=== PATIENT | female | born 1955 | race Caucasian/White ===

== ENCOUNTER 2017-02-28 08:31 | Day surgery (SDC) | payer BC ==
[~2017-02-28 08:31] MED LIST: Lactated Ringers 1,000 ML IV SCH; Lidocaine 1% 6 ML ONE; Lidocaine 1%/Sod Bicarbonate in NS 8.4% 1 ML Syringe IV PRN; Midazolam 1 MG/ML 2 ML SDV ONE; Propofol 200 MG/20 ML SDV ONE; Sodium Chloride 0.9% 10 ML Syringe FLUSH PRN; fentaNYL 100 MCG/2 ML SDV ONE
--- NOTE | 2017-02-28 08:56 | PCM.PREANE ---
Preanesthetic Assessment - Anesthesia/Transfusion/Family Hx Anesthesia History: Prior Anesthesia Without Reaction Family History of Anesthesia Reaction: No Transfusion History: No Prior Transfusion(s) - Review of Systems General: No Symptoms Pulmonary: No Symptoms Cardiovascular: No Symptoms Gastrointestinal: No symptoms, Abdominal pain (lately also anxiety) Neurological: No Symptoms Other: Reports: Easy Bruising, Thyroid Problems (half a thyroid), Neck Pain ( bulging disc), Depression, Anxiety - Physical Assessment NPO Status Date: 02/27/17 NPO Status Time: 23:00 Pulse: 96 O2 Sat by Pulse Oximetry: 98 Respiratory Rate: 16 Blood Pressure: 110/81 Temperature: 97.5 F Height: 5 ft 4 in Weight: 70.307 kg ASA Class: 2 Mental Status: Alert & Oriented x3 Airway Class: Mallampati = 1 Dentition: Reports: Normal Dentition, Broken Tooth/Teeth, Missing Tooth/Teeth Thyro-Mental Finger Breadths: 3 Mouth Opening Finger Breadths: 3 ROM/Head Extension: Full Lungs: Clear to auscultation, Normal respiratory effort Cardiovascular: Regular Rhythm - Allergies Allergies/Adverse Reactions: Allergies Allergy/AdvReac Type Severity Reaction Status Date / Time No Known Allergies Allergy Verified 02/27/17 16:19 - Blood Blood Available: No - Acknowledgements Anesthesia Type Planned: MAC Pt an Appropriate Candidate for the Planned Anesthesia: Yes Alternatives and Risks of Anesthesia Discussed w Pt/Guardian: Yes Pt/Guardian Understands and Agrees with Anesthesia Plan: Yes PreAnesthesia Questionnaire HEENT History: Reports: Allergic Rhinitis, Impaired Vision Cardiovascular History: Reports: Heart Murmur, Hypertension Respiratory History: Reports: SOB Gastrointestinal History: Reports: Chronic Constipation, Colon Polyp Genitourinary History: Reports: None 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 Musculoskeletal History: Reports: Other (See Below) Other Musculoskeletal History: chronic neck pain Neurological History: Reports: Other (See Below) (occasional headache) Psychiatric History: Reports: Anxiety, Depression Other Psychiatric History: alcohol use Endocrine/Metabolic History: Reports: Hypothyroidism Hematologic History: Reports: Other (See Below) Other Hematologic History: hyponatremia Oncologic (Cancer) History: Reports: None Dermatologic History: Reports: None - Past Surgical History Head Surgeries/Procedures: Reports: None HEENT Surgical History: Reports: Oral Surgery GI Surgical History: Reports: Colonoscopy Endocrine Surgical History: Reports: Thyroidectomy - SUBSTANCE USE Smoking Status *Q: Current Every Day Smoker Tobacco Use Within Last Twelve Months: Cigarettes Second Hand Smoke Exposure: Yes Days Per Week of Alcohol Use: 5 (usually whiskey) Number of Drinks Per Day: 4 Total Drinks Per Week: 20 Recreational Drug Use History: No - HOME MEDS Home Medications: Home Meds Cyclobenzaprine HCl [Cyclobenzaprine HCl] 10 mg PO BID PRN 02/27/17 [History] Gabapentin [Gabapentin] 300 mg PO BEDTIME 02/27/17 [History] Levothyroxine Sodium [Levothyroxine Sodium] 100 mcg PO DAILY 02/27/17 [History] Loratadine [Claritin] 10 mg PO DAILY 02/27/17 [History] Losartan [Cozaar] 100 mg PO DAILY 02/27/17 [History] Sertraline HCl [Sertraline HCl] 50 mg PO DAILY 02/27/17 [History] buPROPion HCl [Bupropion Xl] 150 mg PO DAILY 02/27/17 [History] - CURRENT (IN HOUSE) MEDS Current Meds: Current Medications Lactated Ringer's (Ringers, Lactated) 1,000 mls @ 125 mls/hr IV ASDIRECTED REBECCA Stop: 02/28/17 23:00 Lidocaine/Sodium Bicarbonate (Buffered Lidocaine 1% In Ns 8.4%) 0.25 ml IV ONETIME PRN PRN Reason: Prior to IV Start Stop: 02/28/17 18:00 Sodium Chloride (Saline Flush) 10 ml FLUSH ASDIRECTED PRN PRN Reason: Keep Vein Open Stop: 02/28/17 18:00 Discontinued Medications Fentanyl (Sublimaze) Confirm Administered Dose 100 mcg .ROUTE .STK-MED ONE Stop: 02/28/17 07:38 Lidocaine HCl (Xylocaine-Mpf 1%) Confirm Administered Dose 6 mls @ as directed .ROUTE .STK-MED ONE Stop: 02/28/17 07:37 Midazolam HCl (Versed 1 Mg/Ml) Confirm Administered Dose 2 mg .ROUTE .STK-MED ONE Stop: 02/28/17 07:38 Propofol (Diprivan 20 Ml) Confirm Administered Dose 200 mg .ROUTE .STK-MED ONE Stop: 02/28/17 07:37
[2017-02-28] MEDS ORDERED: Propofol 200 MG/20 ML SDV ONE ×2 (10:15→10:36)
[2017-02-28] MEDS ORDERED: Lactated Ringers 1,000 ML ONE (10:16)
--- NOTE | 2017-02-28 10:56 | PCM48HPAN ---
Post Anesthesia Note - EVALUATION WITHIN 48HRS OF ANESTHETIC Vital Signs in Normal Range: Yes Patient Participated in Evaluation: Yes Respiratory Function Stable: Yes Airway Patent: Yes Cardiovascular Function Stable: Yes Hydration Status Stable: Yes Pain Control Satisfactory: Yes Nausea and Vomiting Control Satisfactory: Yes Mental Status Recovered: Yes
[2017-02-28 10:58] VITALS: BP 162/88
--- NOTE | 2017-02-28 10:59 | PCM.OPNOTE ---
- General Post-Op/Procedure Note Date of Surgery/Procedure: 02/28/17 Operative Procedure(s): Colonoscopy with biopsies of the appendiceal orifice, and two random rectal biopsies, along with a sigmoid polypectomy, and fulguration of 13 diminutive sigmoid, and rectal polyps. Findings: 1. internal hemorrhoids 2. multiple diminutive all < 5 mm sigmoid and rectal polyps 3. protuberant and prolapsed appendiceal mucosa Pre Op Diagnosis: Change in bowel habit Post-Op Diagnosis: 1. internal hemorrhoids. 2. multiple sigmoid and rectal polyps Anesthesia Technique: MAC, Moderate sedation Primary Surgeon: Manan iWlkins Pathology: Biopsy of the appendiceal orifice, and biopsy of the rectum, along with sigmoid , polypectomy EBL in mLs: 0 Complications: None Condition: Good Free Text/Narrative:: After adequate IV sedation and analgesia was obtained the patient was placed on her left side. Perianal inspection was unremarkable. She did have some hyperpigmentation. A lubricated colonoscope was inserted into the rectum and advanced with some difficulty because the colon was capacious to the cecum with abdominal pressure. The appendix orifice was protuberant with slightly prolapsed mucosa, which I biopsied x2 with cold forceps for histopathologic evaluation. The cecum, and right colon were unremarkable with no mass lesions or inflammatory changes seen. Likewise the transverse colon and descending colons were endoscopically normal. Within the distal sigmoid and rectum there were 14 diminutive polyps, all grossly hyperplastic. The largest which was 6 mm in diameter I biopsied and the other 13 sigmoid and proximal rectal polyps were fulgurated. In the retroflexed view I could see internal hemorrhoids, which were uncomplicated. Air was removed, as I finished the procedure. Food Operations Manager photographs were taken for the patient and for the record. Given the number of polyps she should have a followup colonoscopy in one year.
== END 2017-02-28 11:42 | disposition home or self-care (01) ==
LOC: JD.SDS 08:31
PROVIDERS: ATTEND Surgery
PROC: 0D5N8ZZ Destruction of Sigmoid Colon, Via Natural or Artificial Opening Endoscopic (ICD-10-PCS; principal; 2017-02-28)
DX: K63.5 Polyp of colon (principal); K64.8 Other hemorrhoids; K62.1 Rectal polyp
CPT/HCPCS: 45380; 45388; 88305; J2250; J3010; J7120; J2704

== ENCOUNTER 2020-05-13 15:56 | Emergency (ER) | payer BC, OTHER ==
[2020-05-13] MEDS ORDERED: Ondansetron 4 MG/2 ML SDV IVPUSH ONE (17:27)
[2020-05-13] MEDS ORDERED: Alum Hydrox/Mag Hydrox/Simeth 30 ML, Lidocaine 2% 15 ML PO ONE ×2 (17:28)
[2020-05-13] MEDS ORDERED: Sodium Chloride 0.9% 10 ML Syringe FLUSH PRN ×2 (17:29→17:48)
[2020-05-13] MEDS ORDERED: Sodium Chloride 0.9% 1,000 ML IV SCH (17:30)
[2020-05-13] MEDS ORDERED: Iopamidol 612 MG/ML 100 ML Bottle IVPUSH ONE (17:48)
[2020-05-13] MEDS ORDERED: Diatrizoate Meglumine/Diatrizoate Sodium 37% 120 ML Bottle PO ONE (17:48)
--- NOTE | 2020-05-13 17:48 | EDM.PDOC ---
ED HPI GENERAL MEDICAL PROBLEM - General Chief Complaint: Abdominal Pain Stated Complaint: WEAK/ABDOMINAL PAIN/SWEATS Time Seen by Provider: 05/13/20 16:52 Source of Information: Reports: Patient, RN Notes Reviewed History Limitations: Reports: No Limitations - History of Present Illness INITIAL COMMENTS - FREE TEXT/NARRATIVE: Patient is a 65 year old female who presents to the ED for her abdomen pain. The patient notes a positive history for Lung Cancer with masses on her colon that need to be removed. The patient states that three days ago, she developed lower abdominal pains that were sharp in nature, but she states that they have now moved to her epigastric region. She notes some mild heartburn and burping with this. She states that movement does seem to make the cramping worse. Patient notes that some muscle weakness in her arms and legs to follow after the abdominal pain starts. She also appreciates shortness of breath with even some of the slightest movement. The patient states that she just feels terrible. She thought that she felt a little bit constipated the other day, so she did have her daughter bring out some laxatives, she states that it took 12 hours for these laxatives to work. She states that her bowel movement was normal for her last yesterday. Patient notes that she is only had contact with her family members, and they have not been symptomatic for COVID-19. She states that her youngest daughter and have also been tested for COVID-19 and they have been negative. But she does note that they have been out in the community. She denies any fever or chills, cough that is not a smoker's cough. She did wake up this morning at around 2 AM, and had an episode of vomiting, and states she is only gotten about 2 hours of sleep due to the pain. She is complaining of some mild heartburn with belching. She states all she had to eat for yesterday was half of a roast beef sandwich from [email or web address]. Other than her lung cancer, patient has had a half of her thyroid taking out. She did get chemo for her lung cancer, and states that she did complete her treatment for this. Patient notes that she is slated for removal of the masses in her colon, in May. Middle Epigastric Pain Score (Numeric/FACES): 2 - Related Data Allergies Allergy/AdvReac Type Severity Reaction Status Date / Time adhesive Allergy Rash Verified 05/13/20 20:20 avocado Allergy Rash Verified 05/13/20 20:20 Home Meds: Home Meds Cyclobenzaprine HCl 10 mg PO DAILY PRN 02/27/17 [History] Gabapentin 300 mg PO BEDTIME 02/27/17 [History] Levothyroxine Sodium 100 mcg PO DAILY 02/27/17 [History] Loratadine [Claritin] 10 mg PO DAILY 02/27/17 [History] Losartan [Cozaar] 50 mg PO DAILY 02/27/17 [History] buPROPion HCl [Bupropion Xl] 300 mg PO DAILY 02/27/17 [History] Albuterol [Ventolin HFA] 2 inh PO QID PRN 05/13/20 [History] Furosemide 20 mg PO DAILY 05/13/20 [History] Tiotropium Corral [Spiriva Respimat] 2 inh PO DAILY 05/13/20 [History] Past Medical History HEENT History: Reports: Allergic Rhinitis, Impaired Vision Cardiovascular History: Reports: Heart Murmur, Hypertension Respiratory History: Reports: SOB Gastrointestinal History: Reports: Chronic Constipation, Colon Polyp Musculoskeletal History: Reports: Other (See Below) Other Musculoskeletal History: chronic neck pain Neurological History: Reports: Other (See Below) (occasional headache) Psychiatric History: Reports: Anxiety, Depression Other Psychiatric History: alcohol use Endocrine/Metabolic History: Reports: Hypothyroidism Hematologic History: Reports: Other (See Below) Other Hematologic History: hyponatremia Oncologic (Cancer) History: Reports: Lung (with Chemo in 2017, also notes masses in her colon to be removed May 2020) - Past Surgical History HEENT Surgical History: Reports: Oral Surgery GI Surgical History: Reports: Colonoscopy Endocrine Surgical History: Reports: Thyroidectomy Social & Family History - Tobacco Use Smoking Status *Q: Current Every Day Smoker Tobacco Use Within Last Twelve Months: Cigarettes ED ROS GENERAL - Review of Systems Review Of Systems: Comprehensive ROS is negative, except as noted in HPI. ED EXAM, GI/ABD - Physical Exam Exam: See Below Exam Limited By: No Limitations General Appearance: Alert, WD/WN, No Apparent Distress Eyes: Bilateral: Normal Appearance Throat/Mouth: Normal Inspection, Normal Lips, Normal Teeth, Normal Gums, Normal Oropharynx, Normal Voice, No Airway Compromise Head: Atraumatic, Normocephalic Neck: Normal Inspection Respiratory/Chest: No Respiratory Distress, Lungs Clear, Normal Breath Sounds, No Accessory Muscle Use, Chest Non-Tender Cardiovascular: Normal Peripheral Pulses, Regular Rate, Rhythm, No Murmur GI/Abdominal Exam: Normal Bowel Sounds, Soft, No Distention, No Mass, Tender (generalized, but more exquisitely tender over epigastrium) Extremities: Normal Inspection, Normal Capillary Refill Neurological: Alert, Oriented, Normal Cognition, No Motor/Sensory Deficits Psychiatric: Normal Affect, Normal Mood Skin Exam: Warm, Dry, Intact, Normal Color, No Rash Course - Vital Signs Last Recorded V/S: Last Vital Signs Temp 97.6 F 05/13/20 16:41 Pulse 104 H 05/13/20 16:41 Resp 18 05/13/20 16:41 BP Pulse Ox 99 05/13/20 16:41 - Orders/Labs/Meds Orders: Active Orders 24 hr Category Date Time Status Gastrointestinal Tube Mgmt [RC] ASDIRECTED Care 05/13/20 20:53 Ordered Peripheral IV Care [RC] . DIRECTED Care 05/13/20 17:29 Active Chest 1V Frontal [CR] Stat Exams 05/13/20 21:40 Ordered Chest 1V-Tube Placement Chk NC [CR] Stat Exams 05/13/20 21:39 Ordered UA W/MICROSCOPIC [URIN] Stat Lab 05/13/20 17:27 Ordered Sodium Chloride 0.9% [Normal Saline] 1,000 ml Med 05/13/20 17:30 Active IV ASDIRECTED Sodium Chloride 0.9% [Normal Saline] 1,000 ml Med 05/13/20 20:38 Ordered IV ONETIME Sodium Chloride 0.9% [Saline Flush] Med 05/13/20 17:29 Active 10 ml FLUSH ASDIRECTED PRN Sodium Chloride 0.9% [Saline Flush] Med 05/13/20 17:48 Active 10 ml FLUSH ONETIME PRN Nasogastric Orogastric Tube Insertion [OM.PC] Routine Oth 05/13/20 20:53 Ordered Peripheral IV Insertion Adult [OM.PC] Routine Oth 05/13/20 17:29 Ordered Medication Orders Sodium Chloride (Normal Saline) 1,000 mls @ 999 mls/hr IV ASDIRECTED [facility] Last Admin: 05/13/20 19:00 Dose: 999 mls/hr Documented by: MADELYN Sodium Chloride (Normal Saline) 1,000 mls @ 500 mls/hr IV ONETIME ONE Stop: 05/13/20 22:37 Last Admin: 05/13/20 21:03 Dose: 500 mls/hr Documented by: NESTOR Sodium Chloride (Saline Flush) 10 ml FLUSH ASDIRECTED PRN PRN Reason: Keep Vein Open Last Admin: 05/13/20 19:03 Dose: 10 ml Documented by: MADELYN Sodium Chloride (Saline Flush) 10 ml FLUSH ONETIME PRN PRN Reason: Keep Vein Open Last Admin: 05/13/20 19:04 Dose: 10 ml Documented by: MADELYN Labs: Laboratory Tests 05/13/20 05/13/20 05/13/20 Range/Units 19:40 19:40 21:05 WBC 11.63 H (3.98-10.04) K/mm3 RBC 4.33 (3.98-5.22) M/mm3 Hgb 14.1 (11.2-15.7) gm/dl Hct 41.2 (34.1-44.9) % MCV 95.2 H (79.4-94.8) fl MCH 32.6 H (25.6-32.2) pg MCHC 34.2 (32.2-35.5) g/dl RDW Std Deviation 43.4 (36.4-46.3) fL Plt Count 374 H D (182-369) K/mm3 MPV 9.3 L (9.4-12.3) fl Neutrophils % (Manual) 77 H (40-60) % Band Neutrophils % 1 (0-10) % Lymphocytes % (Manual) 14 L (20-40) % Atypical Lymphs % 0 % Monocytes % (Manual) 8 (2-10) % Eosinophils % (Manual) 0 L (0.7-5.8) % Basophils % (Manual) 0 L (0.1-1.2) Platelet Estimate Adequate RBC Morph Comment Normal Sodium 129 L (136-145) mEq/L Potassium 3.6 (3.5-5.1) mEq/L Chloride 89 L (98-107) mEq/L Carbon Dioxide 31 (21-32) mEq/L Anion Gap 12.6 (5-15) BUN 31 H (7-18) mg/dL Creatinine 2.4 H D (0.55-1.02) mg/dL Est Cr Clr Drug Dosing 19.91 mL/min Estimated GFR (MDRD) 20 (>60) mL/min BUN/Creatinine Ratio 12.9 L (14-18) Glucose 109 (80-115) mg/dL Calcium 9.6 (8.5-10.1) mg/dL Total Bilirubin 1.4 H (0.2-1.0) mg/dL GGT 56 H (5-55) U/L AST 26 (15-37) U/L ALT 23 (14-59) U/L Alkaline Phosphatase 124 H (46-116) U/L Total Protein 7.7 (6.4-8.2) g/dl Albumin 4.0 (3.4-5.0) g/dl Globulin 3.7 gm/dL Albumin/Globulin Ratio 1.1 (1-2) Lipase 133 (73-393) U/L SARS Virus RNA (PCR) Negative (NEGATIVE) Meds: Medications Generic Name Dose Route Start Last Admin Trade Name Freq PRN Reason Stop Dose Admin Sodium Chloride 1,000 mls @ 999 mls/hr 05/13/20 17:30 05/13/20 19:00 Normal Saline IV 999 mls/hr ASDIRECTED REBECCA Administration Sodium Chloride 1,000 mls @ 500 mls/hr 05/13/20 20:38 05/13/20 21:03 Normal Saline IV 05/13/20 22:37 500 mls/hr ONETIME ONE Administration Sodium Chloride 10 ml 05/13/20 17:29 05/13/20 19:03 Saline Flush FLUSH 10 ml ASDIRECTED PRN Administration Keep Vein Open Sodium Chloride 10 ml 05/13/20 17:48 05/13/20 19:04 Saline Flush FLUSH 10 ml ONETIME PRN Administration Keep Vein Open Discontinued Medications Generic Name Dose Route Start Last Admin Trade Name Freq PRN Reason Stop Dose Admin Al Hydroxide/Mg Hydroxide 30 0 ml 05/13/20 17:28 05/13/20 19:01 ml/ Lidocaine HCl 15 ml PO 05/13/20 17:29 45 ml ONETIME ONE Administration Diatrizoate Meglum/Diatrizoate Sod 40 ml 05/13/20 17:48 05/13/20 20:18 Gastrografin 37% PO 05/13/20 17:49 45 ml ONETIME ONE Administration Iopamidol 100 ml 05/13/20 17:48 05/13/20 20:18 Isovue-300 (61%) IVPUSH 05/13/20 17:49 Not Given ONETIME ONE Lorazepam 1 mg 05/13/20 21:49 05/13/20 22:06 Ativan IVPUSH 05/13/20 21:50 1 mg ONETIME ONE Administration Metoclopramide HCl 10 mg 05/13/20 21:50 05/13/20 22:06 Reglan IVPUSH 05/13/20 21:51 10 mg ONETIME ONE Administration Ondansetron HCl 4 mg 05/13/20 17:27 05/13/20 19:03 Zofran IVPUSH 05/13/20 17:28 4 mg ONETIME ONE Administration - Re-Assessments/Exams Free Text/Narrative Re-Assessment/Exam: 05/13/20 17:52 Patient presents to the ED for evaluation of her abdomen pain. Have ordered abdomen pelvis CT with IV and oral contrast, basic labs, some IV fluids and 4 mg Zofran for initial management. 05/13/20 20:41 Patient's labs have resulted, white blood cell count is mildly elevated 11.63, 77% neutrophils and 1 band, sodium is mildly low at 129, this seems to be a chronic issue for her. BUN is markedly elevated from laboratory evaluation done in 2018, at 31. Creatinine also elevated at 2.4, GFR drastically reduced at 20, total bili elevated 1.4, GGT at the upper limits of normal at 56, and lipase is normal. Abdomen/pelvis CT, and urinalysis is still pending. 05/13/20 21:20 CT is done and read as dilated small bowel loops with transitional point likely within the pelvis with an area of surrounding inflammation, most likely from an adhesion. Will have an NG tube placed and have her tested for COVID-19, I suspect this to be negative. [facility] is her [facility] of facility for transfer. I have called and talked with their general surgeon Dr. Velasquez and their hospitalist Dr. Esposito, and they ultimately accept for transfer. 05/13/20 22:05 COVID-19 screen is negative. NG tube does look to be in place, reviewed by myself and Dr. Arrieta. Departure - Departure Time of Disposition: 21:39 Disposition: DC/Tfer to Acute Hospital 02 Condition: Good Clinical Impression: Small bowel obstruction due to adhesions - Discharge Information *PRESCRIPTION DRUG MONITORING PROGRAM REVIEWED*: No *COPY OF PRESCRIPTION DRUG MONITORING REPORT IN PATIENT TREY: No Referrals: Kathleen Jones PA-C [Primary Care Provider] - Forms: ED Department Discharge Sepsis Event Note (ED) - Evaluation Sepsis Screening Result: No Definite Risk - Focused Exam Vital Signs: Vital Signs Temp Pulse Resp Pulse Ox 05/13/20 16:41 97.6 F 104 H 18 99 - My Orders Last 24 Hours: My Active Orders 05/13/20 17:27 UA W/MICROSCOPIC [URIN] Stat 05/13/20 17:29 Peripheral IV Care [RC] . DIRECTED Sodium Chloride 0.9% [Saline Flush] 10 ml FLUSH ASDIRECTED PRN Peripheral IV Insertion Adult [OM.PC] Routine 05/13/20 17:30 Sodium Chloride 0.9% [Normal Saline] 1,000 ml IV ASDIRECTED 05/13/20 17:48 Sodium Chloride 0.9% [Saline Flush] 10 ml FLUSH ONETIME PRN 05/13/20 20:38 Sodium Chloride 0.9% [Normal Saline] 1,000 ml IV ONETIME 05/13/20 20:53 Gastrointestinal Tube Mgmt [RC] ASDIRECTED Nasogastric Orogastric Tube Insertion [OM.PC] Routine 05/13/20 21:39 Chest 1V-Tube Placement Chk NC [CR] Stat 05/13/20 21:40 Chest 1V Frontal [CR] Stat - Assessment/Plan Last 24 Hours: My Active Orders 05/13/20 17:27 UA W/MICROSCOPIC [URIN] Stat 05/13/20 17:29 Peripheral IV Care [RC] . DIRECTED Sodium Chloride 0.9% [Saline Flush] 10 ml FLUSH ASDIRECTED PRN Peripheral IV Insertion Adult [OM.PC] Routine 05/13/20 17:30 Sodium Chloride 0.9% [Normal Saline] 1,000 ml IV ASDIRECTED 05/13/20 17:48 Sodium Chloride 0.9% [Saline Flush] 10 ml FLUSH ONETIME PRN 05/13/20 20:38 Sodium Chloride 0.9% [Normal Saline] 1,000 ml IV ONETIME 05/13/20 20:53 Gastrointestinal Tube Mgmt [RC] ASDIRECTED Nasogastric Orogastric Tube Insertion [OM.PC] Routine 05/13/20 21:39 Chest 1V-Tube Placement Chk NC [CR] Stat 05/13/20 21:40 Chest 1V Frontal [CR] Stat
[2020-05-13] MEDS ORDERED: Sodium Chloride 0.9% 1,000 ML IV ONE (20:38)
--- NOTE | 2020-05-13 20:55 | CT ---
CT abdomen and pelvis Technique: Multiple axial sections were obtained from above the dome of the diaphragm inferiorly through the pubic symphysis. Oral contrast was utilized. No intravenous contrast was given. Findings: Thick area of atelectasis is seen within the right lung base. Small amount of fluid is seen around the liver. Liver shows no focal parenchymal abnormality. Spleen appears within normal limits. Gallbladder contains no calcified gallstones. Pancreas shows no discrete abnormality. Kidneys show no abnormal calcifications or hydronephrosis. Aorta shows atherosclerotic calcification which continues into the iliac vessels. No retroperitoneal adenopathy or mesenteric abnormalities are seen. Dilated small bowel loops are seen. Transition point appears to be within the pelvis. Etiology for this obstruction is not appreciated and this most likely relates to nonvisualized adhesion. There is slight inflammatory change in the area of the presumed transition. No discrete pelvic mass or adenopathy is seen. No free air is seen. Bone window settings were reviewed which shows scattered degenerative change throughout the spine. Impression: 1. Dilated small bowel loops with transitional point felt to be within the pelvis with surrounding area of slight inflammatory change. Etiology is not seen and this most likely is caused from adhesion. 2. Thick area of atelectasis within right lung base. 3. No other acute finding is appreciated on noncontrast CT study of the abdomen and pelvis. Diagnostic code #3 This report was dictated in MDT
[2020-05-13] MEDS ORDERED: LORazepam 2 MG/ML SDV IVPUSH ONE (21:49)
[2020-05-13] MEDS ORDERED: Metoclopramide 10 MG/2 ML SDV IVPUSH ONE (21:50)
[2020-05-13 22:48] VITALS: BP 112/74; PULSE 89
--- NOTE | 2020-05-14 05:50 | CR ---
Chest: Portable view of the chest was obtained. Comparison: Prior chest CT study of 05/29/19. Heart size is normal. Tortuous thoracic aorta is noted. Lungs are clear. Nasogastric tube is seen. Tip lies within the area of the stomach. Left-sided port is seen. Impression: 1. Tip of endotracheal tube within the stomach. 2. Nothing acute is otherwise seen on frontal chest x-ray. Diagnostic code #2 This report was dictated in MDT
== END 2020-05-13 22:25 ==
LOC: JD.ED 15:56
DX: K56.50 Intestinal adhesions [bands], unspecified as to partial versus complete obstruction (principal); I10 Essential (primary) hypertension; F41.9 Anxiety disorder, unspecified; F32.9 Major depressive disorder, single episode, unspecified; E03.9 Hypothyroidism, unspecified; F17.210 Nicotine dependence, cigarettes, uncomplicated; Z20.828 Contact with and (suspected) exposure to other viral communicable diseases; Z91.048 Other nonmedicinal substance allergy status; Z91.018 Allergy to other foods; Z79.899 Other long term (current) drug therapy; Z98.890 Other specified postprocedural states
CPT/HCPCS: 36415; 43752; 74177; 80053; 81001; 82977; 83690; 85007; 85027; 87635; 96361; 96374; 96375; 99285; A9270; J2060; J2405; J2765; J7030; Q9963; U0002

== ENCOUNTER 2020-05-28 21:31 | Emergency (ER) | payer BC ==
[2020-05-28 21:52] VITALS: BP 133/78; PULSE 97
--- NOTE | 2020-05-28 22:52 | EDM.PDOC ---
ED HPI GENERAL MEDICAL PROBLEM - General Chief Complaint: Back Pain or Injury Stated Complaint: ARMS NUMB/PAIN ACROSS UPPER BACK Time Seen by Provider: 05/28/20 22:04 Source of Information: Reports: Patient History Limitations: Reports: No Limitations - History of Present Illness INITIAL COMMENTS - FREE TEXT/NARRATIVE: Ms. 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 today. She states that the first and second episode lasted about 15 minutes each, and the third episode lasted around 25 minutes. She states that her right arm is still slightly tingly. She expressly denies anterior chest pain or discomfort, dyspnea, or palpitations. No prior similar symptoms. Here in the ED, the patient is found to be hemodynamically stable, afebrile, saturating 98% on room air. Other than today's symptoms, the patient denies having a recent fever, chills, sore throat, ear pain, nasal or sinus congestion, cough, dyspnea, chest pain, palpitations, nausea, vomiting, constipation, diarrhea, abdominal pain, urinary symptoms, recent weight gain or weight loss, recent bloody bowel movements or black bowel movements, recent joint aches, headaches, or rashes. The patient's PCP is EDWINA Becker. Her Oncologist is Dr. Emanuel Lujan. Her Surgeon is Dr. Chao Velasquez. Her Hand Developer is Dr. Joon Franks. Her Pain Specialist is Dr. Abdiel Deng. Back Pain Score (Numeric/FACES): 6 - Related Data Allergies Allergy/AdvReac Type Severity Reaction Status Date / Time adhesive Allergy Rash Verified 05/28/20 21:52 avocado Allergy Rash Verified 05/28/20 21:52 Home Meds: Home Meds Cyclobenzaprine HCl 10 mg PO DAILY PRN 02/27/17 [History] Gabapentin 300 mg PO BEDTIME 02/27/17 [History] Levothyroxine Sodium 100 mcg PO DAILY 02/27/17 [History] Loratadine [Claritin] 10 mg PO DAILY 02/27/17 [History] Losartan [Cozaar] 50 mg PO DAILY 02/27/17 [History] buPROPion HCl [Bupropion Xl] 300 mg PO DAILY 02/27/17 [History] Albuterol [Ventolin HFA] 2 inh PO QID PRN 05/13/20 [History] Furosemide 20 mg PO DAILY 05/13/20 [History] Tiotropium [place] [Spiriva Respimat] 2 inh PO DAILY 05/13/20 [History] Past Medical History HEENT History: Reports: Allergic Rhinitis, Impaired Vision Cardiovascular History: Reports: Hypertension Respiratory History: Reports: COPD (PFT-proven) Gastrointestinal History: Reports: Colon Polyp Musculoskeletal History: Reports: Neck Pain, Chronic (cervical disc disease) Psychiatric History: Reports: Anxiety, Depression Endocrine/Metabolic History: Reports: Hypothyroidism Oncologic (Cancer) History: Reports: Colon (appendiceal, s/p resection), Lung (dx 2018, s/p CTx, RTx, in remission) - Past Surgical History HEENT Surgical History: Reports: Oral Surgery (wisdom teeth extraction) Cardiovascular Surgical History: Reports: Other (See Below) (Left Port-A-Cath) Respiratory Surgical History: Reports: Other (See Below) (Bronchoscopy x 2) GI Surgical History: Reports: Colonoscopy (x 5 or 6) Endocrine Surgical History: Reports: Thyroidectomy (partial, due to non- cancerous nodule) Oncologic Surgical History: Reports: Other (See Below) (partial small bowel resect for appendiceal CA 05/17/2020 @ [facility]) Social & Family History - Tobacco Use Smoking Status *Q: Current Every Day Smoker Years of Tobacco use: 48 Packs/Tins Daily: 1 Packs/Tins Daily Comment: Down from 2 ppd - Caffeine Use Caffeine Use: Reports: None - Alcohol Use Alcohol Use History: Yes Alcohol Use Frequency: Socially - Recreational Drug Use Recreational Drug Use: No - Living Situation & Occupation Living situation: Reports: Single, Alone Occupation: Retired ED ROS GENERAL - Review of Systems Review Of Systems: Comprehensive ROS is negative, except as noted in HPI. ED EXAM, UPPER BACK/NECK PAIN - Physical Exam Exam: See Below Exam Limited By: No Limitations General Appearance: Alert, WD/WN, No Apparent Distress Eye Exam: Bilateral Eye: EOMI, Normal Inspection Ears Exam: Normal External Exam, Hearing Grossly Normal Nose Exam: Normal Inspection Throat/Mouth Exam: Normal Inspection, Normal Lips, Normal Voice, No Airway Compromise Head Exam: Atraumatic, Normocephalic Neck Exam: Non-Tender, Normal Alignment, Normal Inspection, Limited Range of Motion (normal for age), Other (No upper extremity symptoms induced with cervical spine compression, turning of the head fully to the left or right, tipping her chin to her chest, or fully extending her neck) Cardiovascular/Respiratory: Regular Rate, Rhythm, Normal Peripheral Pulses, No JVD, Normal Breath Sounds, No Respiratory Distress, Murmur (Systolic, heard best at the apex) GI/Abdominal: Normal Bowel Sounds, Soft, No Organomegaly, No Distention, No Abnormal Bruit, No Mass, Tender (Post-surgical tenderness) (Female) Exam: Deferred Rectal (Female) Exam: Deferred Back Exam: Normal Inspection, Full Range of Motion, Other (No thoracic spinal tenderness or paraspinal tenderness). No: Paraspinal Tenderness, Vertebral Tenderness Extremities: Normal Inspection, Normal Range of Motion, No Pedal Edema, Normal Capillary Refill Neurologic: No Motor/Sensory Deficits, Alert, Oriented x 3 Psychiatric: Normal Affect Skin Exam: Normal Color, Warm/Dry EKG INTERPRETATION EKG Date: 05/28/20 Time: 21:43 Rhythm: NSR Rate (Beats/Min): 95 [place]: Normal P-Wave: Present QRS: Normal ST-T: Normal QT: Normal Comparison: NA - No Prior EKG Course - Vital Signs Last Recorded V/S: Last Vital Signs Temp 37.3 C 05/28/20 21:48 Pulse 97 05/28/20 21:48 Resp 18 05/28/20 21:48 BP 133/78 05/28/20 21:48 Pulse Ox 98 05/28/20 21:48 - Re-Assessments/Exams Free Text/Narrative Re-Assessment/Exam: 05/28/20 22:47 As above, the patient has a history of lung cancer, in remission after chemotherapy and radiation therapy in 2018, but with a more recent diagnosis of appendiceal cancer, status post a small bowel resection, but not yet treated with chemotherapy, who now presents with 3 episodes of pain felt between her scapulae, along with numbness going down both arms. Her physical exam at this time is completely unremarkable, although she states that she still has a little bit of tingling to her right upper extremity. The patient has a history of cervical disc disease, which could explain her bilateral arm tingling, except that provocative maneuvers do not change her upper extremity symptoms, and cervical disc disease would not explain the pain between her scapulae. Similarly, if the patient had an upper thoracic lesion, that should not cause tingling/numbness of either of her arms. I have ordered CT scans of her cervical and thoracic spines with IV contrast to evaluate for any lesions. 05/28/20 22:55 Notified by Zena PADRON that the patient no longer wants the CT scans. 05/28/20 23:18 I went and talked to the patient. She stated that she underwent CT scans of her chest, abdomen, and pelvis on 04/23/2020, which revealed degenerative disc disease. She is convinced that that is what is going on, and since she is feeling all better now, she decided against having the CT scans tonight. I will therefore discharge her home. Departure - Departure Time of Disposition: 23:20 Disposition: Home, Self-Care 01 Condition: Good Clinical Impression: Thoracic spine pain, Paresthesia and pain of both upper extremities - Discharge Information *PRESCRIPTION DRUG MONITORING PROGRAM REVIEWED*: Not Applicable *COPY OF PRESCRIPTION DRUG MONITORING REPORT IN PATIENT TREY: Not Applicable Instructions: Paresthesia, [id number] Referrals: Kathleen Jones PA-C [Primary Care Provider] - Emanuel Lujan MD [Ordering Only Provider] - Chao Velasquez MD [Ordering Only Provider] - Abdiel Deng Om, MD [Ordering Only Provider] - Joon Franks MD [Ordering Only Provider] - Forms: ED Department Discharge Additional Instructions: You were seen in the emergency room after experiencing 3 episodes of pain between your shoulder blades with numbness down both arms. A work-up in the ER was ordered for CT scans of your neck and thoracic spine, along with a chemistry panel, however, since you had CT scans of your chest, abdomen, and pelvis on 04/23/2020 that showed degenerative disc disease, you elected against the ER tests. We recommend that you follow-up with your PCP, EDWINA Becker, to discuss whether or not an outpatient MRI might be appropriate for you. If any other problems, including worsening of your symptoms, please do not hesitate to return to the ER. Sepsis Event Note (ED) - Evaluation Sepsis Screening Result: No Definite Risk
== END 2020-05-28 23:32 | disposition home or self-care (01) ==
LOC: JD.ED 21:31
DX: M54.6 Pain in thoracic spine (principal); R20.2 Paresthesia of skin; I10 Essential (primary) hypertension; J44.9 Chronic obstructive pulmonary disease, unspecified; F41.9 Anxiety disorder, unspecified; F32.9 Major depressive disorder, single episode, unspecified; E03.9 Hypothyroidism, unspecified; F17.210 Nicotine dependence, cigarettes, uncomplicated; Z91.048 Other nonmedicinal substance allergy status; Z91.018 Allergy to other foods; Z79.899 Other long term (current) drug therapy
CPT/HCPCS: 93010; 99283; 99284-25

== ENCOUNTER 2021-03-28 14:30 | Emergency (ER) | payer BC ==
[2021-03-28] MEDS ORDERED: Sodium Chloride 0.9% 1,000 ML IV STA ×2 (15:18→17:37)
[2021-03-28] MEDS: Sodium Chloride 0.9% 10 ML Syringe FLUSH PRN ×2 (15:51→18:23)
--- NOTE | 2021-03-28 15:53 | CR ---
Chest: Portable view of the chest was obtained. Comparison: Prior chest x-ray of 05/13/20 as well as prior chest CT study of 05/29/19. Slight atelectasis seen within the right lung base. Slight parenchymal density is suggested within the right lung base. Lungs otherwise are clear with no other parenchymal change being seen. Heart size is normal. Tortuous thoracic aorta is noted. Infusion catheter is seen entering from the left side with tip in satisfactory position. Impression: 1. Slight scarring within the right lung base. Difficult to exclude small area of pneumonia within the right lung base. 2. Infusion catheter entering from the left side. 3. No other acute abnormality is appreciated. Diagnostic code #3
[2021-03-28] MEDS ORDERED: Iopamidol 612 MG/ML 100 ML Bottle IVPUSH ONE (18:03)
--- NOTE | 2021-03-28 18:24 | EDM.PDOC ---
<Dylan Cool - Last Filed: 03/29/21 03:16> ED HPI GENERAL MEDICAL PROBLEM - General Chief Complaint: General Stated Complaint: MULTIPLE POST SURGICAL ISSUES Time Seen by Provider: 03/28/21 15:03 - Related Data Allergies Allergy/AdvReac Type Severity Reaction Status Date / Time adhesive Allergy Severe Rash Verified 03/28/21 15:03 avocado Allergy Severe Rash Verified 03/28/21 15:03 Home Meds: Home Meds Cyclobenzaprine HCl 10 mg PO DAILY PRN 02/27/17 [History] Gabapentin 300 mg PO BEDTIME 02/27/17 [History] Levothyroxine Sodium 100 mcg PO DAILY 02/27/17 [History] Loratadine [Claritin] 10 mg PO DAILY 02/27/17 [History] Losartan [Cozaar] 50 mg PO DAILY 02/27/17 [History] buPROPion HCl [Bupropion Xl] 300 mg PO DAILY 02/27/17 [History] Albuterol [Ventolin HFA] 2 inh PO QID PRN 05/13/20 [History] Tiotropium Woodman [Spiriva Respimat] 2 inh PO DAILY 05/13/20 [History] Apixaban [Eliquis] 2.5 mg PO BID 03/28/21 [History] DULoxetine [Cymbalta] 60 mg PO DAILY 03/28/21 [History] Ibuprofen 800 mg PO TID 03/28/21 [History] Ondansetron [Zofran] 8 mg PO Q8H PRN 03/28/21 [History] oxyCODONE 5 mg PO ASDIRECTED PRN 03/28/21 [History] Course - Re-Assessments/Exams Free Text/Narrative Re-Assessment/Exam: 03/29/21 03:16 Taking over for Brook. The patient's blood pressure would drop into the 80s sys tolic but when she was talking and active it would be in the 90s. She then stayed in the low 80s. I ordered dopamine at 5mcg/kg. That did improve her blood pressure to the mid 90s to low 100s. There was a significant delay with transporting her. [facility] was full and their airplane was busy. [facility] had to come get her. I did talk with Dr Correa the pump servicer cold reduction roller at [facility] in [place] and I updated him. Departure - Departure Disposition: DC/Tfer to [facility] 02 Clinical Impression: Hyponatremia, Hypokalemia, Postoperative anemia Hypotension Qualifiers: Hypotension type: unspecified hypotension type Qualified Code(s): I95.9 - Hypotension, unspecified - Discharge Information Referrals: Kathleen Jones PA-C [Primary Care Provider] - Forms: ED Department Discharge <[place],Brook - Last Filed: 03/29/21 20:55> ED HPI GENERAL MEDICAL PROBLEM - General Source of Information: Reports: Patient, RN Notes Reviewed History Limitations: Reports: No Limitations - History of Present Illness INITIAL COMMENTS - FREE TEXT/NARRATIVE: Patient is a 66-year-old female presenting to the emergency department with her daughter with concerns of low blood pressure, weakness, and hypoxia. She had surgery on March 17 for bowel resection and gallbladder removal for treatment of intestinal cancer. She reports that she was discharged on Sunday. She has been having increasing weakness since that time. Daughter reports that her blood pressure today was in the 70s systolically and she did have some intermittent confusion. They also checked her oxygen saturation at home and was found to be 86% on room air. Patient does have pain and tenderness to the abdomen which has been consistent since the time of surgery. She is currently wearing an abdominal binder. Reports valentine were removed prior to discharge on Sunday. She is had no fever or chills. She is having loose stools which she states has been normal since the surgery was completed. Denies any nausea or vomiting. Sha talamantes has a history of lung cancer in 2018. She reports that she had low sodium and potassium when she was in the hospital; however, she was unable to tolerate sodium and potassium supplementation. Reports that her provider there told her to stop it as it was causing more harm than good. 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: None Musculoskeletal History: Reports: Neck Pain, Chronic Other Musculoskeletal History: chronic neck pain Neurological History: Reports: Other (See Below) Psychiatric History: Reports: Anxiety, Depression Other Psychiatric History: alcohol use Endocrine/Metabolic History: Reports: Hypothyroidism Hematologic History: Reports: Other (See Below) Other Hematologic History: hyponatremia Oncologic (Cancer) History: Reports: Colon, Lung Dermatologic History: Reports: None - Infectious Disease History Infectious Disease History: Reports: Chicken Pox, Measles, Mumps - Past Surgical History Head Surgeries/Procedures: Reports: None HEENT Surgical History: Reports: Oral Surgery Cardiovascular Surgical History: Reports: Other (See Below) Respiratory Surgical History: Reports: Other (See Below) Other Respiratory Surgeries/Procedures: lung cancer GI Surgical History: Reports: Appendectomy, Cholecystectomy, Colonoscopy Other GI Surgeries/Procedures: bowel resection, bowel cancer Endocrine Surgical History: Reports: Thyroidectomy Oncologic Surgical History: Reports: Other (See Below) Social & Family History - Tobacco Use Tobacco Use Status *Q: Former Tobacco User Used Tobacco, but Quit: Yes Month/Year Tobacco Last Used: 2020 - Caffeine Use Caffeine Use: Reports: Coffee, Soda - Recreational Drug Use Recreational Drug Use: No - Living Situation & Occupation Living situation: Reports: Single, Alone Occupation: Retired ED ROS GENERAL - Review of Systems Review Of Systems: See Below Constitutional: Reports: Weakness, Fatigue. Denies: Fever, Chills HEENT: Reports: No Symptoms Respiratory: Reports: No Symptoms. Denies: Shortness of Breath, Cough Cardiovascular: Reports: Lightheadedness. Denies: Syncope Endocrine: Reports: No Symptoms GI/Abdominal: Reports: Abdominal Pain, Diarrhea. Denies: Nausea, Vomiting : Reports: No Symptoms. Denies: Dysuria Musculoskeletal: Reports: No Symptoms Skin: Reports: No Symptoms Neurological: Reports: No Symptoms Psychiatric: Reports: No Symptoms Hematologic/Lymphatic: Reports: No Symptoms Immunologic: Reports: No Symptoms ED EXAM, GENERAL - Physical Exam Exam: See Below General Appearance: Alert, WD/WN, No Apparent Distress Respiratory/Chest: No Respiratory Distress, Lungs Clear, Normal Breath Sounds, No Accessory Muscle Use, Chest Non-Tender Cardiovascular: Normal Peripheral Pulses, Regular Rate, Rhythm, No Edema, No Gallop, No JVD, No Murmur, No Rub GI/Abdominal: Normal Bowel Sounds, Soft, Other (Midline abdominal incision. Well approximated. Small amount of dried drainage in the umbilicus. Very small amount of erythema lateral to the incision. Steri-Strips remain intact.) Neurological: Alert, Oriented, CN II-XII Intact, Normal Cognition, Normal Gait, Normal Reflexes, No Motor/Sensory Deficits Psychiatric: Normal Affect, Normal Mood Skin Exam: Warm, Dry, Intact, Normal Color, No Rash #1 Interpretation EKG Date: 03/28/21 Time: 15:40 Rhythm: NSR Rate (Beats/Min): 91 [place]: Normal QRS: Normal ST-T: Normal QT: Prolonged (borderline) EKG Interpretation Comments: Normal sinus rhythm rate 91, normal QRS, borderline prolonged QT interval. EKG interpreted by Dr. Gisele CORBIN Course - Vital Signs Last Recorded V/S: Last Vital Signs Temp 99.1 F 03/28/21 15:01 Pulse 92 03/29/21 02:15 Resp 17 03/29/21 01:54 BP 108/60 03/29/21 02:15 Pulse Ox 95 03/29/21 02:15 - Orders/Labs/Meds Labs: Laboratory Tests 03/28/21 03/28/21 03/28/21 Range/Units 15:45 15:45 15:45 WBC 5.90 (3.98-10.04) K/mm3 RBC 2.28 L (3.98-5.22) M/mm3 Hgb 7.4 L D (11.2-15.7) gm/dl Hct 22.0 L (34.1-44.9) % MCV 96.5 H (79.4-94.8) fl MCH 32.5 H (25.6-32.2) pg MCHC 33.6 (32.2-35.5) g/dl RDW Std Deviation 43.6 (36.4-46.3) fL Plt Count 189 D (182-369) K/mm3 MPV 9.5 (9.4-12.3) fl Neut % (Auto) 68.3 (34.0-71.1) % Lymph % (Auto) 6.4 L (19.3-51.7) % [place] % (Auto) 24.2 H (4.7-12.5) % Eos % (Auto) 0.2 L (0.7-5.8) Baso % (Auto) 0.2 (0.1-1.2) % Neut # (Auto) 4.03 (1.56-6.13) K/mm3 Lymph # (Auto) 0.38 L (1.18-3.74) K/mm3 [place] # (Auto) 1.43 H (0.24-0.36) K/mm3 Eos # (Auto) 0.01 L (0.04-0.36) K/mm3 Baso # (Auto) 0.01 (0.01-0.08) K/mm3 Manual Slide Review Abnormal smear Sodium 130 L (136-145) mEq/L Potassium 3.0 L (3.5-5.1) mEq/L Chloride 92 L (98-107) mEq/L Carbon Dioxide 25 (21-32) mEq/L Anion Gap 16.0 H (5-15) BUN 29 H (7-18) mg/dL Creatinine 1.2 H D (0.55-1.02) mg/dL Est Cr Clr Drug Dosing 39.28 mL/min Estimated GFR (MDRD) 45 (>60) mL/min BUN/Creatinine Ratio 24.2 H (14-18) Glucose 116 H (70-99) mg/dL Lactic Acid 0.8 (0.4-2.0) mmol/L Calcium 7.8 L D (8.5-10.1) mg/dL Magnesium 1.4 L (1.8-2.4) mg/dL Total Bilirubin 0.8 (0.2-1.0) mg/dL AST 33 (15-37) U/L ALT 21 (14-59) U/L Alkaline Phosphatase 288 H (46-116) U/L C-Reactive Protein 31.6 H* (<1.0) mg/dL Total Protein 5.9 L (6.4-8.2) g/dl Albumin 2.0 L (3.4-5.0) g/dl Globulin 3.9 gm/dL Albumin/Globulin Ratio 0.5 L (1-2) Urine Color (Yellow) Urine Appearance (Clear) Urine pH (5.0-8.0) Ur Specific [place] (1.005-1.030) Urine Protein (Negative) Urine Glucose (UA) (Negative) Urine Ketones (Negative) Urine Occult Blood (Negative) Urine Nitrite (Negative) Urine Bilirubin (Negative) Urine Urobilinogen (0.2-1.0) Ur Leukocyte Esterase (Negative) Urine RBC (0-5) /hpf Urine WBC (0-5) /hpf Ur Squamous Epith Cells (0-5) /hpf Urine Bacteria (FEW) /hpf Urine Mucus (FEW) /hpf SARS-CoV-2 RNA (BRYANNA) (NEGATIVE) Blood Type Gel Antibody Screen 03/28/21 03/28/21 03/28/21 Range/Units 15:45 15:54 19:25 WBC (3.98-10.04) K/mm3 RBC (3.98-5.22) M/mm3 Hgb 7.0 L* (11.2-15.7) gm/dl Hct 21.4 L (34.1-44.9) % MCV (79.4-94.8) fl MCH (25.6-32.2) pg MCHC (32.2-35.5) g/dl RDW Std Deviation (36.4-46.3) fL Plt Count (182-369) K/mm3 MPV (9.4-12.3) fl Neut % (Auto) (34.0-71.1) % Lymph % (Auto) (19.3-51.7) % [place] % (Auto) (4.7-12.5) % Eos % (Auto) (0.7-5.8) Baso % (Auto) (0.1-1.2) % Neut # (Auto) (1.56-6.13) K/mm3 Lymph # (Auto) (1.18-3.74) K/mm3 [place] # (Auto) (0.24-0.36) K/mm3 Eos # (Auto) (0.04-0.36) K/mm3 Baso # (Auto) (0.01-0.08) K/mm3 Manual Slide Review Sodium (136-145) mEq/L Potassium (3.5-5.1) mEq/L Chloride (98-107) mEq/L Carbon Dioxide (21-32) mEq/L Anion Gap (5-15) BUN (7-18) mg/dL Creatinine (0.55-1.02) mg/dL Est Cr Clr Drug Dosing mL/min Estimated GFR (MDRD) (>60) mL/min BUN/Creatinine Ratio (14-18) Glucose (70-99) mg/dL Lactic Acid (0.4-2.0) mmol/L Calcium (8.5-10.1) mg/dL Magnesium (1.8-2.4) mg/dL Total Bilirubin (0.2-1.0) mg/dL AST (15-37) U/L ALT (14-59) U/L Alkaline Phosphatase (46-116) U/L C-Reactive Protein (<1.0) mg/dL Total Protein (6.4-8.2) g/dl Albumin (3.4-5.0) g/dl Globulin gm/dL Albumin/Globulin Ratio (1-2) Urine Color Yellow (Yellow) Urine Appearance Slt cloudy H (Clear) Urine pH 6.0 (5.0-8.0) Ur Specific [place] > or = 1.030 (1.005-1.030) Urine Protein 2+ H (Negative) Urine Glucose (UA) Negative (Negative) Urine Ketones Trace H (Negative) Urine Occult Blood 2+ H (Negative) Urine Nitrite Negative (Negative) Urine Bilirubin 1+ H (Negative) Urine Urobilinogen 2.0 H (0.2-1.0) Ur Leukocyte Esterase 1+ H (Negative) Urine RBC 5-10 H (0-5) /hpf Urine WBC 5-10 H (0-5) /hpf Ur Squamous Epith Cells 0-5 (0-5) /hpf Urine Bacteria Moderate H (FEW) /hpf Urine Mucus Few (FEW) /hpf SARS-CoV-2 RNA (BRYANNA) (NEGATIVE) Blood Type A POSITIVE Gel Antibody Screen Negative 03/28/21 Range/Units 21:45 WBC (3.98-10.04) K/mm3 RBC (3.98-5.22) M/mm3 Hgb (11.2-15.7) gm/dl Hct (34.1-44.9) % MCV (79.4-94.8) fl MCH (25.6-32.2) pg MCHC (32.2-35.5) g/dl RDW Std Deviation (36.4-46.3) fL Plt Count (182-369) K/mm3 MPV (9.4-12.3) fl Neut % (Auto) (34.0-71.1) % Lymph % (Auto) (19.3-51.7) % [place] % (Auto) (4.7-12.5) % Eos % (Auto) (0.7-5.8) Baso % (Auto) (0.1-1.2) % Neut # (Auto) (1.56-6.13) K/mm3 Lymph # (Auto) (1.18-3.74) K/mm3 [place] # (Auto) (0.24-0.36) K/mm3 Eos # (Auto) (0.04-0.36) K/mm3 Baso # (Auto) (0.01-0.08) K/mm3 Manual Slide Review Sodium (136-145) mEq/L Potassium (3.5-5.1) mEq/L Chloride (98-107) mEq/L Carbon Dioxide (21-32) mEq/L Anion Gap (5-15) BUN (7-18) mg/dL Creatinine (0.55-1.02) mg/dL Est Cr Clr Drug Dosing mL/min Estimated GFR (MDRD) (>60) mL/min BUN/Creatinine Ratio (14-18) Glucose (70-99) mg/dL Lactic Acid (0.4-2.0) mmol/L Calcium (8.5-10.1) mg/dL Magnesium (1.8-2.4) mg/dL Total Bilirubin (0.2-1.0) mg/dL AST (15-37) U/L ALT (14-59) U/L Alkaline Phosphatase (46-116) U/L C-Reactive Protein (<1.0) mg/dL Total Protein (6.4-8.2) g/dl Albumin (3.4-5.0) g/dl Globulin gm/dL Albumin/Globulin Ratio (1-2) Urine Color (Yellow) Urine Appearance (Clear) Urine pH (5.0-8.0) Ur Specific [place] (1.005-1.030) Urine Protein (Negative) Urine Glucose (UA) (Negative) Urine Ketones (Negative) Urine Occult Blood (Negative) Urine Nitrite (Negative) Urine Bilirubin (Negative) Urine Urobilinogen (0.2-1.0) Ur Leukocyte Esterase (Negative) Urine RBC (0-5) /hpf Urine WBC (0-5) /hpf Ur Squamous Epith Cells (0-5) /hpf Urine Bacteria (FEW) /hpf Urine Mucus (FEW) /hpf SARS-CoV-2 RNA (BRYANNA) Negative (NEGATIVE) Blood Type Gel Antibody Screen Meds: Medications Discontinued Medications Generic Name Dose Route Start Last Admin Trade Name Isidro PRN Reason Stop Dose Admin Sodium Chloride 1,000 mls @ 999 mls/hr 03/28/21 15:18 03/28/21 15:51 Normal Saline IV 03/28/21 16:18 999 mls/hr NOW STA Administration Sodium Chloride 1,000 mls @ 999 mls/hr 03/28/21 17:37 03/28/21 17:48 Normal Saline IV 03/28/21 18:37 999 mls/hr NOW STA Administration Sodium Chloride 100 mls @ 75 mls/hr 03/28/21 18:30 03/28/21 18:23 Normal Saline IV 75 mls/hr ASDIRECTED REBECCA Administration Ceftriaxone Sodium 1 gm/ 100 mls @ 200 mls/hr 03/28/21 19:22 03/28/21 19:54 Sodium Chloride IV 03/28/21 19:51 200 mls/hr ONETIME ONE Administration Potassium Chloride/Sodium Chloride 1,000 mls @ 100 mls/hr 03/28/21 19:30 03/28/21 19:52 Normal Saline With 40 Meq Kcl IV 100 mls/hr ASDIRECTED REBECCA Administration Dopamine HCl/Dextrose 400 mg in 250 mls @ 11.822 mls/hr 03/29/21 00:45 03/29/21 01:01 Dopamine In D5w 400 Mg/250 Ml IV 5 mcg/kg/min TITRATE REBECCA 11.822 mls/hr Administration Protocol 5 MCG/KG/MIN Iopamidol 100 ml 03/28/21 18:03 03/28/21 18:23 Iopamidol 612 Mg/Ml 100 Ml Bottle IVPUSH 03/28/21 18:04 100 ml ONETIME ONE Administration Loperamide HCl 2 mg 03/28/21 21:45 03/28/21 21:54 Loperamide 2 Mg Cap PO 03/28/21 21:46 2 mg ONETIME ONE Administration Sodium Chloride 10 ml 03/28/21 15:18 03/28/21 18:23 Sodium Chloride 0.9% 10 Ml Syringe FLUSH 10 ml ASDIRECTED PRN Administration Keep Vein Open - Re-Assessments/Exams Free Text/Narrative Re-Assessment/Exam: Patient is a 66-year-old female presenting to the emergency department with complaints of increased weakness, hypoxia, low blood pressure. On exam, she has a midline abdominal incision that is well approximated. There is small amount of dried purulence within the umbilicus. Very mild erythema to the tissues on the bilateral sides of incision. Bowel sounds are active x4. Patient was found to be hypoxic at 85% on room air on triage. She is currently on 2 L of oxygen saturating in the mid to upper 90s blood pressure in triage was found to be low at 77/66. I have ordered a 1 L bolus of normal saline, blood work, urinalysis. 03/28/211739 Hematology significant for a hemoglobin low at 7.4, sodium low at 130, potassium 3.0, chloride 92, anion gap 16, BUN 29, creatinine 1.2, magnesium 1.4, alkaline phosphatase 288, CRP 31.6. Urinalysis was found to be cloudy with 2+ protein, trace ketones, 2+ occult blood, 1+ bilirubin, 2.0 urobilinogen, 1+ leukocyte esterase, 5-10 RBCs, 5-10 WBCs, moderate bacteria. Case was discussed with the on-call surgeon at [facility], Dr. Dobbs. He recommended to give a second liter of normal saline bolus. Also recommend CT of the abdomen pelvis with IV contrast. He recommend that we do not transfuse blood unless she is hemodynamically unstable due to her receiving intra-abdominal chemotherapy during surgery. I have ordered a second liter of normal saline as well as CT scan of the abdomen pelvis. Plan will be to consult with [facility] again once results are available. 03/28/212036 CT scan of the chest impression as follows: 1. Extensive consolidation right lower lobe with right pleural effusion, probable pneumonia. [place] surrounded by infiltrate versus pneumatocele right lower lobe, early abscess is not ruled out but is considered less likely. 2. Small amount of ill-defined infiltrates are seen in the middle lobe and left lower lobe as well. 3. Mediastinal adenopathy may be reactive. 4. Significant underlying chronic lung disease. 5. Follow-up in March imaging studies recommended to assure complete resolution. CT scan of the abdomen pelvis impression as follows: 1. Postoperative abdomen. 2. Abnormal gas pattern. Question ileus. Underlying enteritis cannot be excluded. Potential differential diagnosis for nonspecific enteritis includes infectious process, inflammatory process, as well as ischemic etiologies. 3. There is a small amount of free fluid in the upper abdomen, no free air is seen. 4. No measurable intra-abdominal or pelvic or retroperitoneal mass or collection is identified. 5. Mild intra and extrahepatic biliary duct dilatation, correlate with LFTs. 6. Fluid is tracking to the posterior aspect of what appears to be a midline anterior abdominal wall incision. Developing hernia may be present. Developing wound infection cannot be excluded. Correlate clinically. Patient continues to be on 2 L of oxygen by nasal cannula saturating in the mid 90s. Last blood pressure was 113/62. I have ordered NS with 40 of KCl to infuse at 100 mill per hour. Of also ordered Rocephin 1 g IV. Recent results discussed with Dr. Dobbs. Patient will need to be admitted for treatment of pneumonia, however he does not feel that it necessarily has to be in [place]. I did speak with our hospitalist, Dr. Awilda Herrera feels that due to the extent of her surgical history as well as diagnosis of cancer, she would be best served in [place]. Case discussed with hospitalist, Dr. Mahajan. He has accepted the patient for admission. Patient will need to transfer by air. Once we are notified that the patient's bed is available, [facility] will be contacted. Patient and daughter updated on this plan and they are in agreement. 03/28/212229 We are awaiting a callback from [facility] with the okay to send the patient. Case discussed with Dr. Cool in. He will assume care of patient to the end of shift. Patient is resting comfortably. Vital signs remained stable. Departure - Departure Time of Disposition: 03:15 Condition: Fair Sepsis Event Note (ED) - Evaluation Sepsis Screening Result: No Definite Risk
[2021-03-28] MEDS ORDERED: Sodium Chloride 0.9% 100 ML IV SCH (18:30)
[2021-03-28] MEDS ORDERED: cefTRIAXone 1 GM in Sodium Chloride 0.9% 100 ML IV ONE (19:22)
[2021-03-28] MEDS ORDERED: Sodium Chloride 0.9% with KCl 1,000 ML IV SCH (19:30)
[2021-03-28] MEDS ORDERED: Loperamide 2 MG Cap PO ONE (21:45)
[2021-03-29] MEDS ORDERED: DOPamine/Dextrose 5%-Water 400 MG/250 ML BAG IV SCH (00:45)
[2021-03-29 02:26] VITALS: BP 108/60; PULSE 92
--- NOTE | 2021-03-29 09:02 | CT ---
CT chest Technique: Multiple axial sections were obtained from above the lung apices inferiorly through the lung bases. Intravenous contrast was utilized. Reconstructed coronal and sagittal images were obtained. Comparison: Prior CT chest study of 05/29/19. Findings: Left-sided infusion port is seen. Prior left-sided thyroidectomy is noted with surgical clips. Thoracic aorta shows mild atherosclerotic change without aneurysm. No discrete mediastinal adenopathy or axillary adenopathy is appreciated. No pericardial thickening is seen. Lung window settings were reviewed which show small right-sided pleural effusion. Diffuse emphysematous changes are seen. There are mild areas of increased density within the right middle lobe. Slight areas of consolidation are noted within the right lung base. There is an air cyst being seen within this area of consolidation which measures about 2.2 cm in size. Minimal density is seen within the posterior left lung base. Bone window settings were reviewed which show diffuse disc space narrowing throughout the thoracic spine with scattered endplate osteophytes. No acute osseous abnormality is appreciated. Impression: 1. Patchy areas of consolidation within the right lung base with an air cyst measuring 2.2 cm being seen within this consolidation. Please correlate if patient has any symptoms of pneumonia. Minimal density is seen within the right middle lobe and within the left lung base which could represent areas of atelectasis as well as an additional area of pneumonia. 2. Small right-sided pleural effusion is seen. 3. Emphysematous changes and other stable findings as noted above. Diagnostic code #3 I agree with preliminary report from [facility], finalized on 03/28/21, 8:12 PM CDT, code 1 CT abdomen and pelvis Technique: Multiple axial sections were obtained from above the dome of the diaphragm inferiorly through the pubic symphysis. Intravenous contrast was utilized. No oral contrast has been given. Delayed images were obtained through the bladder. Reconstructed coronal and sagittal images were obtained. Comparison: Prior CT abdomen and pelvis study of 05/13/20. Findings: Liver contains no focal parenchymal abnormality. Biliary ducts appear mildly prominent. Prior abdominal surgery is noted on the right side. Spleen size is normal. Adrenal glands show no nodule. No abnormality is appreciated within the pancreas. Gallbladder contains no calcified gallstones. Kidneys show symmetric contrast enhancement with no hydronephrosis or mass. Abdominal aorta shows diffuse atherosclerotic calcification without aneurysm. No retroperitoneal adenopathy is seen. No discrete pelvic mass or adenopathy is seen. Prior hysterectomy is noted. Anterior abdominal wall hernia located above the umbilicus is noted which contains fluid. Appendix is not visualized. Small bowel is minimally prominent. Minimal fluid is seen within the abdomen. Bone window settings were reviewed which show degenerative change within the spine most severe at L5-S1. No acute osseous abnormality is appreciated. Impression: 1. Fluid within the abdominal wall extending through an anterior abdominal wall hernia located superior to the umbilicus. 2. Previous surgery is noted within the abdomen. 3. Small amount of fluid within the abdomen. Small bowel is slightly prominent and suspicious for ileus. 4. Slightly prominent biliary ducts which are likely incidental if patient has no abnormal LFTs. Diagnostic code #3 I agree with preliminary report from [facility], finalized on 03/28/21, 8:12 PM CDT, code 1
== END 2021-03-29 02:50 ==
LOC: JD.ED 14:30
DX: I95.9 Hypotension, unspecified (principal); E87.1 Hypo-osmolality and hyponatremia; E87.6 Hypokalemia; D64.9 Anemia, unspecified; I10 Essential (primary) hypertension; J44.9 Chronic obstructive pulmonary disease, unspecified; E03.9 Hypothyroidism, unspecified; Z79.899 Other long term (current) drug therapy; Z79.01 Long term (current) use of anticoagulants; Z91.048 Other nonmedicinal substance allergy status; Z91.018 Allergy to other foods; Z87.891 Personal history of nicotine dependence; Z20.822 Contact with and (suspected) exposure to COVID-19
CPT/HCPCS: 36415; 71045; 71260; 74177; 80053; 81001; 83605; 83735; 85014; 85018; 85025; 86140; 86850; 86900; 86901; 87040; 87086; 87635; 93005; 96365; 99285; A9270; J0696; J1265; J3480; J7030; Q9967; 93010; U0002

== ENCOUNTER 2022-04-24 15:04 | Emergency (ER) | payer MEDICARE, BC ==
[2022-04-24 15:47] VITALS: BP 121/81; PULSE 100
[2022-04-24] MEDS ORDERED: Sodium Chloride 0.9% 10 ML Syringe FLUSH PRN (16:18)
[2022-04-24] MEDS ORDERED: Ondansetron 4 MG Tab.DIS PO ONE (16:44)
[2022-04-24] MEDS ORDERED: Midazolam 1 MG/ML 2 ML SDV IVPUSH ONE (17:25)
[2022-04-24] MEDS ORDERED: Sodium Chloride 0.9% 1,000 ML IV ONE (17:27)
[2022-04-24] MEDS ORDERED: Lidocaine 2% 11 ML Jelly Filled Syringe MUCMEM ONE (17:27)
[2022-04-24 17:33] LABS: CORONAVIRUS COVID-19 NAA NEGATIVE (NEGATIVE)
[2022-04-24] MEDS ORDERED: Nicotine 21 MG/24 Hr Patch TRDERM ONE (20:19)
[2022-04-24] MEDS ORDERED: HYDROmorphone 0.5 MG/0.5 ML Syringe IVPUSH ONE (20:59)
[2022-04-24] MEDS ORDERED: Loratadine 10 MG Tab PO ONE (20:59)
== END 2022-04-24 22:10 ==
LOC: JD.ED 15:04
DX: K56.609 Unspecified intestinal obstruction, unspecified as to partial versus complete obstruction (principal); J44.9 Chronic obstructive pulmonary disease, unspecified; I10 Essential (primary) hypertension; E03.9 Hypothyroidism, unspecified; F17.210 Nicotine dependence, cigarettes, uncomplicated; Z91.048 Other nonmedicinal substance allergy status; Z79.01 Long term (current) use of anticoagulants; Z79.899 Other long term (current) drug therapy; Z20.822 Contact with and (suspected) exposure to COVID-19
CPT/HCPCS: 0240U; 36415; 43752; 71045; 83605; 96361; 96374; 99285; A9270; J1170; J2250; J3490; J7030

== ENCOUNTER 2022-06-23 16:53 | Emergency (ER) | payer MEDICARE, BC ==
[2022-06-23 18:03] VITALS: BP 102/83; PULSE 98
[2022-06-23] MEDS ORDERED: LORazepam 1 MG Tab PO ONE (18:17)
[2022-06-23] MEDS ORDERED: Lidocaine 1% 10 ML MDV INJECT ONE (18:18)
== END 2022-06-23 20:55 | disposition home or self-care (01) ==
LOC: JD.ED 16:53
DX: T81.31XA Disruption of external operation (surgical) wound, not elsewhere classified, initial encounter (principal); I10 Essential (primary) hypertension; J44.9 Chronic obstructive pulmonary disease, unspecified; Z91.048 Other nonmedicinal substance allergy status; Z88.5 Allergy status to narcotic agent; Z79.899 Other long term (current) drug therapy
CPT/HCPCS: 99283; A9270

== ENCOUNTER 2022-10-01 11:54 | Emergency (ER) | payer BC, MEDICARE ==
[2022-10-01] MEDS ORDERED: Dextrose 5%-Lactated Ringers 1,000 ML IV SCH ×2 (13:15→15:00)
[2022-10-01 17:12] VITALS: BP 88/66; PULSE 72
== END 2022-10-01 17:10 | disposition home or self-care (01) ==
LOC: JD.ED 11:54
DX: E86.0 Dehydration (principal); I10 Essential (primary) hypertension; J44.9 Chronic obstructive pulmonary disease, unspecified; E03.9 Hypothyroidism, unspecified; Z88.8 Allergy status to other drugs, medicaments and biological substances; Z91.048 Other nonmedicinal substance allergy status; Z79.01 Long term (current) use of anticoagulants; Z79.899 Other long term (current) drug therapy; Z98.890 Other specified postprocedural states
CPT/HCPCS: 71045; 96360; 96361; 99284; J7121

== ENCOUNTER 2023-02-25 11:11 | Emergency (ER) | payer MEDICARE, BC ==
[2023-02-25] MEDS ORDERED: Sodium Chloride 0.9% 10 ML Syringe FLUSH PRN (11:37)
[2023-02-25] MEDS ORDERED: Sodium Chloride 0.9% 1,000 ML IV STA (12:12)
[2023-02-25] MEDS ORDERED: Metoclopramide 10 MG/2 ML SDV IVPUSH ONE (12:13)
[2023-02-25] MEDS ORDERED: HYDROmorphone 0.5 MG/0.5 ML Syringe IVPUSH ONE ×3 (12:20→16:46)
[2023-02-25 12:45] LABS: BASOPHILS ABSOLUTE AUTO 0.02 K/mm3 (0.01-0.08); BASOPHILS PERCENT AUTO 0.2 % (0.1-1.2); EOSINOPHILS ABSOLUTE AUTO 0.05 K/mm3 (0.04-0.36); EOSINOPHILS PERCENT AUTO 0.6 (0.7-5.8); HEMATOCRIT 25.8 % (34.1-44.9); IMMATURE GRAN ABSOLUTE AUTO 0.03 K/mm3 (0.00-0.10); IMMATURE GRAN PERCENT AUTO 0.4 % (<=1.0); LYMPHOCYTES ABSOLUTE AUTO 0.86 K/mm3 (1.18-3.74); LYMPHOCYTES PERCENT AUTO 10.2 % (19.3-51.7); MEAN CORPUSCULAR HEMOGLOBIN 29.1 pg (25.6-32.2); MEAN CORPUSCULAR HGB CONC 32.6 g/dl (32.2-35.5); MEAN PLATELET VOLUME 9.4 fl (9.4-12.3); MONOCYTES ABSOLUTE AUTO 0.51 K/mm3 (0.24-0.36); NEUTROPHILS ABSOLUTE AUTO 6.97 K/mm3 (1.56-6.13); NEUTROPHILS PERCENT AUTO 82.6 % (34.0-71.1); PLATELET COUNT,PLT 426 K/mm3 (182-369); RED BLOOD CELL COUNT 2.89 M/mm3 (3.98-5.22); WHITE BLOOD CELL COUNT,WBC 8.44 K/mm3 (3.98-10.04)
[2023-02-25 12:50] LABS: HEMOGLOBIN 8.4 gm/dl (11.2-15.7); MEAN CORPUSCULAR VOLUME 89.3 fl (79.4-94.8)
[2023-02-25 13:06] LABS: A/G RATIO 0.4 (1-2); ALANINE AMINOTRANSFERASE,ALT 33 U/L (14-59); ALKALINE PHOSPHATASE 213 U/L (46-116); ANION GAP 12.8 (5-15); ASPARTATE AMNIOTRANSFERASE,AST 54 U/L (15-37); BILIRUBIN TOTAL 0.4 mg/dL (0.2-1.0); BLOOD UREA NITROGEN,BUN 32 mg/dL (7-18); CALCIUM 8.7 mg/dL (8.5-10.1); CARBON DIOXIDE,CO2 24 mEq/L (21-32); CHLORIDE,CL 103 mEq/L (98-107); CREATININE 0.8 mg/dL (0.55-1.02); ESTIMATED GFR 80 mL/min (>60); GLUCOSE RANDOM 210 mg/dL (70-99); POTASSIUM,K 3.8 mEq/L (3.5-5.1); PROTEIN TOTAL,TP 7.1 g/dl (6.4-8.2); SODIUM,NA 136 mEq/L (136-145)
[2023-02-25 13:43] LABS: SLIDE REVIEW ABNORMAL SMEAR
[2023-02-25] MEDS ORDERED: Iopamidol 612 MG/ML 100 ML Bottle IVPUSH ONE (14:09)
[2023-02-25] MEDS ORDERED: Promethazine 25 MG in Sodium Chloride 0.9% 50 ML IV ONE (14:18)
[2023-02-25 15:33] LABS: APPEARANCE,URINE CLEAR (Clear); BILIRUBIN,URINE NEGATIVE (Negative); COLOR,URINE YELLOW (Yellow); GLUCOSE,URINE NEGATIVE (Negative); KETONES,URINE NEGATIVE (Negative); LEUKOCYTE ESTERASE,URINE NEGATIVE (Negative); NITRITE,URINE NEGATIVE (Negative); OCCULT BLOOD,URINE NEGATIVE (Negative); PH,URINE 6.5 (5.0-8.0); PROTEIN,URINE NEGATIVE (Negative); UROBILINOGEN,URINE 0.2 (0.2-1.0)
[2023-02-25] MEDS ORDERED: cefTRIAXone 2 GM in Sodium Chloride 0.9% 100 ML IV ONE (15:38)
[2023-02-25 16:34] LABS: BACTERIA,URINE FEW /hpf (FEW); RBC,URINE 0-5 /hpf (0-5); WBC,URINE 20-30 /hpf (0-5)
[2023-02-25 16:35] LABS: MUCUS,URINE NOT SEEN /hpf (FEW)
[2023-02-25 17:56] VITALS: BP 89/61; PULSE 107
== END 2023-02-25 17:40 | disposition home or self-care (01) ==
LOC: JD.ED 11:11
DX: R11.2 Nausea with vomiting, unspecified (principal); R10.9 Unspecified abdominal pain; I10 Essential (primary) hypertension; J44.9 Chronic obstructive pulmonary disease, unspecified; E03.9 Hypothyroidism, unspecified; Z88.8 Allergy status to other drugs, medicaments and biological substances; Z91.048 Other nonmedicinal substance allergy status; Z79.01 Long term (current) use of anticoagulants; Z79.899 Other long term (current) drug therapy; Z87.891 Personal history of nicotine dependence; Z51.5 Encounter for palliative care
CPT/HCPCS: 36415; 74177; 80053; 81001; 85025; 87086; 96361; 96365; 96367; 96375; 96376; 99284; J0696; J1170; J2550; J2765; J3490; J7030; Q9967

== ENCOUNTER 2023-02-26 12:34 | Emergency (ER) | payer MEDICARE, BC ==
[2023-02-26] MEDS ORDERED: Sodium Chloride 0.9% 10 ML Syringe FLUSH PRN (12:47)
[2023-02-26] MEDS ORDERED: HYDROmorphone 1 MG/ML Syringe IVPUSH ONE (12:47)
[2023-02-26] MEDS ORDERED: Ondansetron 4 MG/2 ML SDV IVPUSH ONE ×2 (12:47→19:16)
[2023-02-26] MEDS ORDERED: Sodium Chloride 0.9% 1,000 ML IV ONE (12:47)
[2023-02-26] MEDS ORDERED: Promethazine 25 MG in Sodium Chloride 0.9% 50 ML IV ONE (12:59)
[2023-02-26 13:39] LABS: BASOPHILS ABSOLUTE AUTO 0.03 K/mm3 (0.01-0.08); BASOPHILS PERCENT AUTO 0.3 % (0.1-1.2); EOSINOPHILS ABSOLUTE AUTO 0.08 K/mm3 (0.04-0.36); EOSINOPHILS PERCENT AUTO 0.9 (0.7-5.8); HEMATOCRIT 25.7 % (34.1-44.9); HEMOGLOBIN 8.2 gm/dl (11.2-15.7); IMMATURE GRAN ABSOLUTE AUTO 0.02 K/mm3 (0.00-0.10); IMMATURE GRAN PERCENT AUTO 0.2 % (<=1.0); LYMPHOCYTES ABSOLUTE AUTO 0.85 K/mm3 (1.18-3.74); LYMPHOCYTES PERCENT AUTO 9.6 % (19.3-51.7); MEAN CORPUSCULAR HEMOGLOBIN 28.5 pg (25.6-32.2); MEAN CORPUSCULAR HGB CONC 31.9 g/dl (32.2-35.5); MEAN CORPUSCULAR VOLUME 89.2 fl (79.4-94.8); MEAN PLATELET VOLUME 9.6 fl (9.4-12.3); MONOCYTES ABSOLUTE AUTO 0.58 K/mm3 (0.24-0.36); MONOCYTES PERCENT AUTO 6.6 % (4.7-12.5); NEUTROPHILS ABSOLUTE AUTO 7.27 K/mm3 (1.56-6.13); NEUTROPHILS PERCENT AUTO 82.4 % (34.0-71.1); PLATELET COUNT,PLT 384 K/mm3 (182-369); RED BLOOD CELL COUNT 2.88 M/mm3 (3.98-5.22); WHITE BLOOD CELL COUNT,WBC 8.83 K/mm3 (3.98-10.04)
[2023-02-26 13:55] LABS: A/G RATIO 0.4 (1-2); ANION GAP 13.6 (5-15); BILIRUBIN TOTAL 0.4 mg/dL (0.2-1.0); BUN/CREATININE RATIO 44.3 (14-18); C-REACTIVE PROTEIN 1.9 mg/dL (<1.0); CALCIUM 8.4 mg/dL (8.5-10.1); CREATININE 0.7 mg/dL (0.55-1.02); EST CRCL DRUG DOSING (CG) 54.31 mL/min; MAGNESIUM 1.8 mg/dL (1.8-2.4); POTASSIUM,K 3.6 mEq/L (3.5-5.1)
[2023-02-26] MEDS ORDERED: fentaNYL 100 MCG/2 ML SDV IVPUSH ONE ×2 (15:44→18:58)
[2023-02-26] MEDS ORDERED: Metoclopramide 10 MG/2 ML SDV IVPUSH ONE (15:44)
[2023-02-26] MEDS ORDERED: fentaNYL 100 MCG/HR Transdermal Patch TRDERM ONE (16:34)
[2023-02-26 21:13] VITALS: BP 117/59; PULSE 68
== END 2023-02-26 20:49 | disposition home or self-care (01) ==
LOC: JD.ED 12:34
DX: R11.2 Nausea with vomiting, unspecified (principal); R10.9 Unspecified abdominal pain; I10 Essential (primary) hypertension; J44.9 Chronic obstructive pulmonary disease, unspecified; E03.9 Hypothyroidism, unspecified; F17.210 Nicotine dependence, cigarettes, uncomplicated; Z88.8 Allergy status to other drugs, medicaments and biological substances; Z91.048 Other nonmedicinal substance allergy status; Z79.899 Other long term (current) drug therapy
CPT/HCPCS: 36415; 80053; 83735; 85025; 86140; 96365; 96375; 96376; 99284; A9270; J1170; J1642; J2405; J2550; J2765; J3010; J3490; J7030

== ENCOUNTER 2023-03-12 16:34 | Observation (INO) | payer BC, MEDICARE ==
[2023-03-12] MEDS ORDERED: LORazepam 2 MG/ML SDV IVPUSH ONE (17:13)
[2023-03-12 22:35] VITALS: BP 95/43
[2023-03-13] MEDS: LORazepam 2 MG/ML SDV IVPUSH PRN ×3 (05:46→19:41)
[2023-03-13] MEDS: Morphine 2 MG/ML SYRINGE IVPUSH PRN ×6 (05:46→22:24)
[2023-03-13 09:33] VITALS: PULSE 95
== END 2023-03-13 22:45 | disposition expired ==
LOC: JD.ED 16:34 → JD.MS 18:28
PROVIDERS: ADMIT Internal Medicine; ATTEND Internal Medicine
DX: Z51.5 Encounter for palliative care (principal); C78.89 Secondary malignant neoplasm of other digestive organs; J30.9 Allergic rhinitis, unspecified; J44.9 Chronic obstructive pulmonary disease, unspecified; D64.9 Anemia, unspecified; I10 Essential (primary) hypertension; F41.9 Anxiety disorder, unspecified; F32.A Depression, unspecified; E03.9 Hypothyroidism, unspecified; E87.1 Hypo-osmolality and hyponatremia; Z91.048 Other nonmedicinal substance allergy status; Z88.1 Allergy status to other antibiotic agents; Z79.899 Other long term (current) drug therapy; Z98.49 Cataract extraction status, unspecified eye; Z90.49 Acquired absence of other specified parts of digestive tract; Z86.010 Personal history of colon polyps; Z90.710 Acquired absence of both cervix and uterus; Z90.89 Acquired absence of other organs; I95.9 Hypotension, unspecified
CPT/HCPCS: 96374; 99285; J2060; J2270; 96375; 96376; 99223; 99238; G0378